=== PATIENT | male | born 1950 | race Caucasian/White ===

== ENCOUNTER 2021-03-18 11:09 | Inpatient (IN) | payer MEDICAID ==
[~2021-03-18] VITALS: Ht 167.6 cm; Wt 73.0 kg
[2021-03-18] MEDS ORDERED: ONDANSETRON HCL 4MG/2ML INJ IV STA (11:23)
[2021-03-18] MEDS ORDERED: SODIUM CHLORIDE 0.9% 1,000 ML IV ONE (11:45)
[2021-03-18 12:07] LABS: CHLORIDE 114 mEq/L (98-107)
[2021-03-18 12:13] LABS: BASOPHILS % 0.1 % (0.0-2.0); HEMATOCRIT. 37.7 % (42.0-52.0); HEMOGLOBIN. 12.4 g/dL (14.0-18.0); LYMPHOCYTES % 16.9 % (20.0-50.0); MEAN CORPUSCULAR HEMOGLOBIN 28.6 pg (28.0-32.0); MEAN CORPUSCULAR VOLUME 86.9 fL (80.0-94.0); MEAN PLATELET VOLUME 8.8 fl (7.4-10.4); MONOCYTES % 4.8 % (2.0-8.0); NEUTROPHILS % 78.2 % (40.0-76.0); PLATELET 313 x1000/uL (130-400); RED BLOOD CELL COUNT 4.34 mill/uL (4.7-6.1); RED CELL DISTRIBUTION WIDTH 14.8 % (11.6-14.6)
[2021-03-18] MEDS ORDERED: ENOXAPARIN 40MG/0.4ML SYR SUBCUT SCH (14:00)
[2021-03-18] MEDS ORDERED: TRAMADOL 50MG TABLET PO PRN (14:00)
[2021-03-18] MEDS ORDERED: GUAIFENESIN 200MG/10ML SUGAR FREE UDC PO PRN (14:00)
[2021-03-18] MEDS ORDERED: IPRATROPIUM/ALBUTEROL 0.5-3(2.5)MG/3ML NEB NEB PRN (14:00)
[2021-03-18] MEDS ORDERED: NITROGLYCERIN 0.4MG TABLET SL SL PRN (14:00)
[2021-03-18] MEDS ORDERED: CLONIDINE 0.1MG TABLET PO PRN (14:00)
[2021-03-18] MEDS ORDERED: ACETAMINOPHEN 325MG TABLET PO PRN (14:00)
[2021-03-18] MEDS ORDERED: MAGNESIUM/ALUMINUM HYDROXIDE/SIMETHICONE 30ML UDC PO PRN (14:00)
[2021-03-18] MEDS ORDERED: DOCUSATE SODIUM 100MG CAPSULE PO PRN (14:00)
[2021-03-18] MEDS ORDERED: NALOXONE HCL 0.4MG/ML VIAL IV PRN (14:15)
[2021-03-18 14:52] LABS: CREATINE KINASE 327 IU/L (39-308)
[2021-03-18 14:53] LABS: CREATINE KINASE MB FRACTION 2.1 ng/mL (0.5-3.6)
[2021-03-18 15:01] LABS: CLARITY URINE CLOUDY (CLEAR); COLOR URINE YELLOW (YELLOW); KETONES URINE TRACE (NEGATIVE); LEUKOCYTE ESTERASE URINE 2+ (NEGATIVE); NITRITE URINE NEGATIVE (NEGATIVE); OCCULT BLOOD URINE 2+ (NEGATIVE); PROTEIN URINE 4+ (NEGATIVE); SPECIFIC GRAVITY URINE 1.021 (1.005-1.030); UROBILINOGEN URINE 0.2 E.U./dL (0.2-1.0)
[2021-03-18 15:06] LABS: VITAMIN B12 SERUM 302 pg/mL (211-911)
[2021-03-18 15:35] LABS: *AMPHETAMINES SCREEN URINE NEGATIVE (NEGATIVE); *BARBITURATES SCREEN URINE NEGATIVE (NEGATIVE); *BENZODIAZEPINES SCREEN URINE NEGATIVE (NEGATIVE); *COCAINE SCREEN URINE NEGATIVE (NEGATIVE); METHADONE URINE SCREEN NEGATIVE (NEGATIVE); OPIATES URINE SCREEN NEGATIVE (NEGATIVE); PHENCYCLIDINE URINE SCREEN NEGATIVE (NEGATIVE)
[2021-03-18 15:36] LABS: CANNABINOID URINE SCREEN NEGATIVE (NEGATIVE)
[2021-03-18] MEDS: DEXT 5%/0.45% NACL 1000ML 1,000 ML IV SCH (16:23)
[2021-03-18] MEDS: AMLODIPINE 10MG TABLET PO SCH (16:24)
[2021-03-18] MEDS: ENOXAPARIN 30MG/0.3ML SYR SUBCUT SCH (16:24)
[2021-03-18] MEDS ORDERED: CEFTRIAXONE 1 G PREMIX 50 ML IV SCH (21:00)
[2021-03-18] MEDS ORDERED: ZOLPIDEM TARTRATE 5MG TABLET PO PRN (21:00)
[2021-03-18] MEDS ORDERED: DEXTROSE 50% WATER 50ML SYRINGE IV PRN (21:00)
[2021-03-18] MEDS: BLOOD SUGAR DIAGNOSTIC STRIP TEST SCH (21:00)
[2021-03-18] MEDS: FAMOTIDINE 20MG TABLET PO SCH (21:50)
[2021-03-18] MEDS: METOCLOPRAMIDE 10MG/10 ML UDC PO SCH (23:23)
[2021-03-18] MEDS: INSULIN LISPRO 100 UNITS/ML SUBCUT SCH (23:25)
[2021-03-18 23:42] VITALS: BP 163/98
[2021-03-19] VITALS (10 sets, daily range): BP systolic 117–170; BP diastolic 65–102
[2021-03-19 00:17] LABS: CREATINE KINASE 350 IU/L (39-308); CREATINE KINASE MB FRACTION 1.7 ng/mL (0.5-3.6)
[2021-03-19] MEDS: ONDANSETRON HCL 4MG/2ML INJ IV PRN (02:02)
[2021-03-19] MEDS: DEXT 5%/0.45% NACL 1000ML 1,000 ML IV SCH ×2 (03:14→15:41)
[2021-03-19 06:25] LABS: BASOPHILS % 0.1 % (0.0-2.0); HEMATOCRIT. 34.4 % (42.0-52.0); HEMOGLOBIN. 11.4 g/dL (14.0-18.0); LYMPHOCYTES % 12.4 % (20.0-50.0); MEAN CORPUSCULAR HEMOGLOBIN 29.4 pg (28.0-32.0); MEAN CORPUSCULAR VOLUME 88.4 fL (80.0-94.0); MEAN PLATELET VOLUME 9.4 fl (7.4-10.4); MONOCYTES % 9.1 % (2.0-8.0); NEUTROPHILS % 78.4 % (40.0-76.0); PLATELET 252 x1000/uL (130-400); RED BLOOD CELL COUNT 3.89 mill/uL (4.7-6.1); RED CELL DISTRIBUTION WIDTH 14.6 % (11.6-14.6)
[2021-03-19 06:40] LABS: CHLORIDE 117 mEq/L (98-107)
[2021-03-19 07:03] LABS: PHOSPHORUS 2.7 mg/dL (2.5-4.9)
[2021-03-19 07:05] LABS: HDL CHOLESTEROL 53 mg/dL (40-59)
[2021-03-19 07:08] LABS: LDL CHOLESTEROL 103 mg/dL (5-100)
[2021-03-19] MEDS: ACETAMINOPHEN 325MG TABLET PO PRN (08:00)
[2021-03-19] MEDS: BLOOD SUGAR DIAGNOSTIC STRIP TEST SCH ×4 (08:05→20:46)
[2021-03-19] MEDS: INSULIN LISPRO 100 UNITS/ML SUBCUT SCH ×4 (08:07→20:46)
[2021-03-19] MEDS: AMLODIPINE 10MG TABLET PO SCH (09:19)
[2021-03-19] MEDS: METOCLOPRAMIDE 10MG/10 ML UDC PO SCH ×4 (09:24→20:04)
[2021-03-19] MEDS: ENOXAPARIN 30MG/0.3ML SYR SUBCUT SCH (15:33)
[2021-03-19] MEDS: CEFTRIAXONE 1,000 MG in DEXTROSE 5% WATER 50 ML IV SCH (20:04)
[2021-03-19] MEDS: FAMOTIDINE 20MG TABLET PO SCH (20:04)
[2021-03-20] MEDS: ACETAMINOPHEN 325MG TABLET PO PRN (03:35)
[2021-03-20] MEDS: ONDANSETRON HCL 4MG/2ML INJ IV PRN (03:36)
[2021-03-20 04:00] VITALS: BP 136/72
[2021-03-20] MEDS: DEXT 5%/0.45% NACL 1000ML 1,000 ML IV SCH ×2 (05:05→18:35)
[2021-03-20 06:46] LABS: HEMATOCRIT 28.8 % (42.0-52.0); HEMOGLOBIN 9.8 g/dL (14.0-18.0); MEAN CORPUSCULAR VOLUME 88.1 fL (80.0-94.0); PLATELET 205 x1000/uL (130-400); RED BLOOD CELL COUNT 3.27 mill/uL (4.7-6.1); RED CELL DISTRIBUTION WIDTH 14.7 % (11.6-14.6)
[2021-03-20 08:00] VITALS: BP 146/72
[2021-03-20] MEDS: INSULIN LISPRO 100 UNITS/ML SUBCUT SCH ×4 (08:00→21:31)
[2021-03-20] MEDS: BLOOD SUGAR DIAGNOSTIC STRIP TEST SCH ×4 (08:13→21:31)
[2021-03-20] MEDS: METOCLOPRAMIDE 10MG/10 ML UDC PO SCH ×4 (08:14→21:26)
[2021-03-20] MEDS: AMLODIPINE 10MG TABLET PO SCH (08:14)
[2021-03-20] MEDS ORDERED: POTASSIUM CHLORIDE 20MEQ/PACKET PO NR (09:00)
[2021-03-20 12:00] VITALS: BP 142/76
[2021-03-20] MEDS: ENOXAPARIN 40MG/0.4ML SYR SUBCUT SCH (14:06)
[2021-03-20 16:00] VITALS: BP 146/78
[2021-03-20 20:00] VITALS: BP 145/81
[2021-03-20] MEDS: FAMOTIDINE 20MG TABLET PO SCH (21:26)
[2021-03-20] MEDS: CEFTRIAXONE 1,000 MG in DEXTROSE 5% WATER 50 ML IV SCH (21:26)
[2021-03-21] VITALS: BP 145/80
[2021-03-21] MEDS: ACETAMINOPHEN 325MG TABLET PO PRN ×2 (00:39→06:17)
[2021-03-21 04:00] VITALS: BP 152/82
[2021-03-21 08:00] VITALS: BP 150/78
[2021-03-21] MEDS: AMLODIPINE 10MG TABLET PO SCH (08:06)
[2021-03-21] MEDS: ENOXAPARIN 40MG/0.4ML SYR SUBCUT SCH (08:06)
[2021-03-21] MEDS: METOCLOPRAMIDE 10MG/10 ML UDC PO SCH ×4 (08:06→20:12)
[2021-03-21] MEDS: BLOOD SUGAR DIAGNOSTIC STRIP TEST SCH ×5 (08:10→22:32)
[2021-03-21] MEDS: INSULIN LISPRO 100 UNITS/ML SUBCUT SCH ×4 (08:10→21:00)
[2021-03-21] MEDS: DEXT 5%/0.45% NACL 1000ML 1,000 ML IV SCH ×2 (08:11→22:31)
[2021-03-21] MEDS: METOPROLOL TARTRATE 25MG TABLET PO SCH ×2 (09:44→20:13)
[2021-03-21 12:00] VITALS: BP 135/76
[2021-03-21 16:00] VITALS: BP 135/76
[2021-03-21 20:00] VITALS: BP 137/60
[2021-03-21] MEDS: CEFTRIAXONE 1,000 MG in DEXTROSE 5% WATER 50 ML IV SCH (20:12)
[2021-03-21] MEDS: FAMOTIDINE 20MG TABLET PO SCH (20:13)
[2021-03-22] VITALS: BP 137/67
[2021-03-22 04:00] VITALS: BP 139/129
[2021-03-22] MEDS: BLOOD SUGAR DIAGNOSTIC STRIP TEST SCH ×4 (06:31→20:55)
[2021-03-22] MEDS: INSULIN LISPRO 100 UNITS/ML SUBCUT SCH ×4 (06:31→20:55)
[2021-03-22] MEDS: METOCLOPRAMIDE 10MG/10 ML UDC PO SCH ×4 (06:32→20:40)
[2021-03-22 08:00] VITALS: BP 153/47
[2021-03-22] MEDS: ENOXAPARIN 40MG/0.4ML SYR SUBCUT SCH (08:48)
[2021-03-22] MEDS: AMLODIPINE 10MG TABLET PO SCH (08:49)
[2021-03-22] MEDS: METOPROLOL TARTRATE 25MG TABLET PO SCH ×2 (08:50→20:45)
[2021-03-22 12:00] VITALS: BP 137/70
[2021-03-22 15:47] VITALS: BP 126/66
[2021-03-22 20:00] VITALS: BP 146/73
[2021-03-22] MEDS: CEFTRIAXONE 1,000 MG in DEXTROSE 5% WATER 50 ML IV SCH (20:39)
[2021-03-22] MEDS: FAMOTIDINE 20MG TABLET PO SCH (20:40)
[2021-03-23] VITALS (7 sets, daily range): BP systolic 120–161; BP diastolic 65–88
[2021-03-23] MEDS: METOCLOPRAMIDE 10MG/10 ML UDC PO SCH ×4 (07:30→20:20)
[2021-03-23] MEDS: BLOOD SUGAR DIAGNOSTIC STRIP TEST SCH ×4 (07:58→20:24)
[2021-03-23] MEDS: INSULIN LISPRO 100 UNITS/ML SUBCUT SCH ×4 (08:00→20:24)
[2021-03-23] MEDS: METOPROLOL TARTRATE 25MG TABLET PO SCH ×2 (08:21→20:24)
[2021-03-23] MEDS: ENOXAPARIN 40MG/0.4ML SYR SUBCUT SCH (08:21)
[2021-03-23] MEDS: AMLODIPINE 10MG TABLET PO SCH (08:21)
[2021-03-23] MEDS: CEFTRIAXONE 1,000 MG in DEXTROSE 5% WATER 50 ML IV SCH (20:19)
[2021-03-23] MEDS: FAMOTIDINE 20MG TABLET PO SCH (20:24)
[2021-03-24] VITALS (7 sets, daily range): BP systolic 127–165; BP diastolic 58–85
[2021-03-24] MEDS: INSULIN LISPRO 100 UNITS/ML SUBCUT SCH ×4 (07:52→20:09)
[2021-03-24] MEDS: BLOOD SUGAR DIAGNOSTIC STRIP TEST SCH ×4 (07:52→20:09)
[2021-03-24] MEDS: METOCLOPRAMIDE 10MG/10 ML UDC PO SCH ×4 (08:32→20:08)
[2021-03-24] MEDS: METOPROLOL TARTRATE 25MG TABLET PO SCH ×2 (08:32→20:09)
[2021-03-24] MEDS: AMLODIPINE 10MG TABLET PO SCH (08:33)
[2021-03-24] MEDS: ENOXAPARIN 40MG/0.4ML SYR SUBCUT SCH (08:33)
[2021-03-24] MEDS: FAMOTIDINE 20MG TABLET PO SCH (20:09)
[2021-03-25] VITALS: BP 116/56
[2021-03-25 04:00] VITALS: BP 139/80
== END 2021-03-25 08:10 | disposition home or self-care (01) | DRG 720 ==
LOC: ER 11:09 → MICUSO 13:18 → EDBEDREQTM 13:30 → EDBEDREQ 13:30 → SUPCPDRO 13:53 → 5EST 21:55
PROVIDERS: ADMIT Internal Medicine; ATTEND Internal Medicine
DX: A41.9 Sepsis, unspecified organism (principal); N17.0 Acute kidney failure with tubular necrosis; K31.84 Gastroparesis; E11.43 Type 2 diabetes mellitus with diabetic autonomic (poly)neuropathy; D63.8 Anemia in other chronic diseases classified elsewhere; E11.65 Type 2 diabetes mellitus with hyperglycemia; I10 Essential (primary) hypertension; Z20.822 Contact with and (suspected) exposure to COVID-19; N39.0 Urinary tract infection, site not specified; Z79.4 Long term (current) use of insulin; Z90.49 Acquired absence of other specified parts of digestive tract; Z79.899 Other long term (current) drug therapy
CPT/HCPCS: 36415; 71045; 74176; 80048; 80053; 80061; 80305; 81003; 82550; 82553; 82607; 82962; 83036; 83605; 83735; 84100; 84145; 84443; 84484; 85025; 85027; 87426; 93005; 93970; 97161; 97165; 99285; J0696; J1650; J1815; J2405; J7030; J7060; J8597